=== PATIENT | male | born 1980 | race African-American/Black ===

== ENCOUNTER 2017-02-19 08:19 | Emergency (ER) | payer SELFPAY ==
[2017-02-19] MEDS ORDERED: Proparacaine 0.5% Opth 15 ML BOT ONE (08:30)
[2017-02-19] MEDS ORDERED: Fluorescein Opthalmic Strip ONE (08:30)
== END 2017-02-19 09:15 | disposition home or self-care (01) ==
LOC: ERS 08:19
DX: S05.01XA Injury of conjunctiva and corneal abrasion without foreign body, right eye, initial encounter (principal); W22.8XXA Striking against or struck by other objects, initial encounter
CPT/HCPCS: 99283

== ENCOUNTER 2019-10-14 12:52 | Emergency (ER) | payer SELFPAY | END 2019-10-14 13:45 | disposition home or self-care (01) | LOC: ERS 12:52 | DX: H92.02 Otalgia, left ear (principal) | CPT/HCPCS: 99282 ==

== ENCOUNTER 2020-07-05 16:51 | Emergency (ER) | payer SELFPAY ==
[2020-07-05] MEDS ORDERED: Acetaminophen 500 MG TAB ONE (17:30)
[2020-07-05] MEDS ORDERED: Ketorolac Tromethamine 30 MG/ML VIAL ONE (17:30)
[2020-07-05] MEDS ORDERED: Dexamethasone 10 MG/ML VIAL ONE (17:31)
== END 2020-07-05 18:07 | disposition home or self-care (01) ==
LOC: ERS 16:51
DX: K04.7 Periapical abscess without sinus (principal)
CPT/HCPCS: 96372; 99283; J1100; J1885

== ENCOUNTER 2020-07-07 18:56 | Emergency (ER) | payer SELFPAY ==
[~2020-07-07 18:56] MED LIST: Iopamidol-370 76% 500 ML 1 ML ONE
[2020-07-07] MEDS ORDERED: Ondansetron PF 4 MG/2 ML Vial ONE ×3 (20:10→22:11)
[2020-07-07] MEDS ORDERED: Piperacillin/Tazobactam 4.5 GM VIAL ONE (20:10)
[2020-07-07] MEDS ORDERED: Ketorolac Tromethamine 30 MG/ML VIAL ONE ×2 (20:10→20:13)
[2020-07-07 21:11] LABS: #Eosinphils 0.1 thou/uL (0.0-0.7); #Lymphocytes 2.7 thou/uL (1.20-3.40); #Monocytes 0.9 thou/uL (0.11-0.59); #Neutrophils 4.8 thou/uL (1.40-6.50); %Basophils 0.4 % (0.0-1.0); %Eosinophils 0.7 % (0.0-10.0); %Lymphocytes 31.6 % (21.0-51.0); %Monocytes 10.3 % (0.0-10.0); %Neutrophils 56.9 % (42.0-75.0); Eosinophils 1 % (0-10); Hemoglobin 15.9 g/dL (14.0-18.0); Lymphocytes 38 % (21-51); MDiff Complete? YES; Mean Corpuscular HGB CONC 33.3 g/dL (32.0-36.0); Mean Corpuscular Hemoglobin 32.3 pg (27.0-31.0); Mean Corpuscular Volume 96.8 fL (78.0-98.0); Mean Platelet Volume 11.7 fL (7.4-10.4); Monocytes 10 % (0-10); Neutrophil 51 % (42-75); Platelet Clumps MODERATE; Platelet Morphology Comment PLT clumps seen-ADEQ; RBC Distribution Width 12.2 % (11.5-14.5); Red Blood Cell (RBC) Count 4.92 mill/uL (4.70-6.10); White Blood Cell (WBC) Count 13.1 thou/uL (4.8-10.8)
--- NOTE | 2020-07-07 21:22 | CT ---
CT of theface: 07/07/2020 COMPARISON:None available HISTORY:Fever, tooth ache TECHNIQUE: Serial axial CT imaging at2.5 mm intervals through the face with IV contrast. Coronal and sagittal reformatted imaging obtained. Findings:The partially imaged brain parenchyma appears grossly unremarkable. The imaged paranasal sinuses and mastoid air cells are well aerated. There is a gingival based fluid collection abutting the anterior aspect of the mandible just to the r ight of midline, best seen on axial image 41, measuring 1.5 cm in transverse dimension, 7-8 mm in AP dimension, and 2.1 cm in craniocaudal dimension, most consistent with a gingival based abscess ass ociated with a periapical abscess with cortical disruption involving the lateral right maxillary incisor. Adjacent soft tissue swelling is seen involving the upper lip. Numerous additional dental caries, absent teeth, and periapical abscesses noted. The retroantral fat and the parapharyngeal fat appears clear bilaterally. The parotid glands, the sub mandibular glands, the hyoid bone, the palantine tonsils, the epiglottis and preepiglottic fat, and the imaged vascular structures demonstrate no acute findings. No acute osseous abnormality is evident. Impression:Gingival based fluid collection involving the anterior right para midline maxilla consiste nt with a gingival abscess associated with a periapical abscess of the right maxillary lateral incisor.
[2020-07-07 21:37] LABS: Albumin 3.8 g/dL (3.5-5.0)
[2020-07-07 21:39] LABS: Calcium 8.9 mg/dL (7.8-10.44); Chloride 105 mmol/L (98-107); Potassium 3.7 mmol/L (3.5-5.1); Sodium 137 mmol/L (136-145)
[2020-07-07 21:40] LABS: Globulin 3.3 g/dL (2.4-3.5); Glucose 102 mg/dL (70-105); Protein, Total 7.1 g/dL (6.0-8.3)
[2020-07-07 21:41] LABS: Anion Gap 15 mmol/L (10-20); Carbon Dioxide 21 mmol/L (22-29)
[2020-07-07 21:42] LABS: Alkaline Phosphatase 61 U/L (40-110); Bilirubin, Total 0.4 mg/dL (0.2-1.2)
[2020-07-07 21:43] LABS: Calc. Creatinine Clearance 0 mL/min (70-130)
[2020-07-07 21:44] LABS: BUN (Urea Nitrogen) 12 mg/dL (8.9-20.6)
[2020-07-07 21:46] LABS: ALT (SGPT) 10 U/L (8-55)
[2020-07-07 22:53] LABS: AST (SGOT) 16 U/L (5-34)
== END 2020-07-07 22:18 | disposition home or self-care (01) ==
LOC: ERS 18:56
DX: K04.7 Periapical abscess without sinus (principal); M27.2 Inflammatory conditions of jaws; R11.2 Nausea with vomiting, unspecified
CPT/HCPCS: 36415; 70487; 80053; 85025; 87040; 94760; 96365; 96375; 96376; J1885; J2405; J2543; Q9967

== ENCOUNTER 2020-07-09 19:53 | Emergency (ER) | payer SELFPAY ==
[2020-07-09] MEDS ORDERED: Promethazine HCl 25 MG/ML VIAL ONE (20:15)
[2020-07-09] MEDS ORDERED: Ondansetron PF 4 MG/2 ML Vial ONE (20:15)
[2020-07-09 20:33] LABS: #Basophils 0.1 thou/uL (0.0-0.2); #Eosinphils 0.1 thou/uL (0.0-0.7); #Lymphocytes 3.9 thou/uL (1.20-3.40); #Monocytes 0.8 thou/uL (0.11-0.59); %Basophils 0.8 % (0.0-1.0); %Eosinophils 0.6 % (0.0-10.0); %Lymphocytes 39.7 % (21.0-51.0); %Monocytes 8.1 % (0.0-10.0); %Neutrophils 50.8 % (42.0-75.0); Mean Corpuscular HGB CONC 33.5 g/dL (32.0-36.0); Mean Corpuscular Hemoglobin 31.8 pg (27.0-31.0); Mean Corpuscular Volume 94.9 fL (78.0-98.0); Mean Platelet Volume 8.5 fL (7.4-10.4); Platelet Count 218 thou/uL (130-400); RBC Distribution Width 11.6 % (11.5-14.5); Red Blood Cell (RBC) Count 4.71 mill/uL (4.70-6.10); White Blood Cell (WBC) Count 9.9 thou/uL (4.8-10.8)
[2020-07-09 20:55] LABS: ALT (SGPT) 10 U/L (8-55); AST (SGOT) 17 U/L (5-34); Albumin 4.4 g/dL (3.5-5.0); Alkaline Phosphatase 73 U/L (40-110); Anion Gap 16 mmol/L (10-20); BUN (Urea Nitrogen) 14 mg/dL (8.9-20.6); Bilirubin, Total 0.5 mg/dL (0.2-1.2); Calc. Creatinine Clearance 0 mL/min (70-130); Calcium 9.5 mg/dL (7.8-10.44); Carbon Dioxide 24 mmol/L (22-29); Chloride 102 mmol/L (98-107); Globulin 3.9 g/dL (2.4-3.5); Glucose 111 mg/dL (70-105); Lipase 29 U/L (8-78); Potassium 3.5 mmol/L (3.5-5.1); Protein, Total 8.3 g/dL (6.0-8.3); Sodium 138 mmol/L (136-145)
[2020-07-09] MEDS ORDERED: Metoclopramide 10 MG/10 ML UDCUP ONE (21:10)
[2020-07-09] MEDS ORDERED: Metoclopramide HCl 10 MG/2 ML VIAL ONE (21:10)
[2020-07-09] MEDS ORDERED: diphenhydrAMINE 50 MG/ML VIAL ONE (21:10)
== END 2020-07-09 22:35 | disposition home or self-care (01) ==
LOC: ERS 19:53
DX: R11.2 Nausea with vomiting, unspecified (principal); T42.2X5A Adverse effect of succinimides and oxazolidinediones, initial encounter
CPT/HCPCS: 80053; 83690; 85025; 96365; 96366; 96368; 96375; J1200; J2405; J2550; J2765

== ENCOUNTER 2021-06-01 13:31 | Emergency (ER) | payer SELFPAY ==
[2021-06-01 14:14] LABS: Mean Corpuscular HGB CONC 33.8 g/dL (32.0-36.0); Mean Corpuscular Hemoglobin 32.8 pg (27.0-31.0); Mean Platelet Volume 8.8 fL (7.4-10.4); Platelet Count 145 thou/uL (130-400); RBC Distribution Width 11.7 % (11.5-14.5); Red Blood Cell (RBC) Count 4.87 mill/uL (4.70-6.10); White Blood Cell (WBC) Count 6.9 thou/uL (4.8-10.8)
[2021-06-01 14:28] LABS: ALT (SGPT) 15 U/L (8-55); AST (SGOT) 25 U/L (5-34); Albumin 4.3 g/dL (3.5-5.0); Alkaline Phosphatase 68 U/L (40-110); Anion Gap 14 mmol/L (10-20); BUN (Urea Nitrogen) 14 mg/dL (8.9-20.6); Bilirubin, Total 0.2 mg/dL (0.2-1.2); Calc. Creatinine Clearance 0 mL/min (70-130); Calcium 9.9 mg/dL (7.8-10.44); Carbon Dioxide 27 mmol/L (22-29); Chloride 101 mmol/L (98-107); Globulin 3.8 g/dL (2.4-3.5); Glucose 103 mg/dL (70-105); Lipase 24 U/L (8-78); Potassium 3.7 mmol/L (3.5-5.1); Protein, Total 8.1 g/dL (6.0-8.3); Sodium 138 mmol/L (136-145)
[2021-06-01 14:36] LABS: Band 3 % (5-11); Lymphocytes 34 % (21-51); MDiff Complete? YES; Monocytes 26 % (0-10); Neutrophil 37 % (42-75); Platelet Morphology Comment Appears Adequate; Polychromasia SLIGHT = 2-3 cells (100X) (0-2/hpf)
== END 2021-06-01 15:38 | disposition left against medical advice (07) ==
LOC: ERS 13:31
DX: Z53.21 Procedure and treatment not carried out due to patient leaving prior to being seen by health care provider (principal)
CPT/HCPCS: 36415; 80053; 83690; 83735; 85025; 94760

== ENCOUNTER 2023-01-02 13:44 | Emergency (ER) | payer SELFPAY ==
[2023-01-02] MEDS ORDERED: Boostrix 0.5 ML (Tdap) VIAL (>/=7 yrs of age) ONE (13:54)
[2023-01-02] MEDS ORDERED: Lidocaine 1% MPF 2 ML VIAL ONE ×2 (13:54→14:00)
[2023-01-02] MEDS ORDERED: Bacitracin 1 PK ONE (14:30)
== END 2023-01-02 15:11 | disposition home or self-care (01) ==
LOC: ERS 13:44
DX: S60.351A Superficial foreign body of right thumb, initial encounter (principal); W45.8XXA Other foreign body or object entering through skin, initial encounter; Z23 Encounter for immunization
CPT/HCPCS: 28190; 90471; 90715

== ENCOUNTER 2023-03-29 21:00 | Emergency (ER) | payer SELFPAY ==
[2023-03-29] MEDS ORDERED: Ketorolac Tromethamine 30 MG/ML VIAL ONE (21:24)
[2023-03-29] MEDS ORDERED: HYDROcodone/Acetaminophen 10/325 mg Tablet ONE (21:24)
[2023-03-29] MEDS ORDERED: Lidocaine 1% PF 5 ML VIAL ONE (21:31)
[2023-03-29] MEDS ORDERED: CEFAZOLIN 1 GM VIAL ONE (22:00)
[2023-03-29] MEDS ORDERED: Sterile Water 10 ML ONE (22:01)
[2023-03-29] MEDS ORDERED: Bacitracin 1 PK ONE (22:19)
== END 2023-03-29 22:47 | disposition home or self-care (01) ==
LOC: ERS 21:00
DX: S62.633B Displaced fracture of distal phalanx of left middle finger, initial encounter for open fracture (principal); W23.1XXA Caught, crushed, jammed, or pinched between stationary objects, initial encounter
CPT/HCPCS: 12001; 96372; J0690; J1885

== ENCOUNTER 2023-04-05 23:16 | Emergency (ER) | payer SELFPAY ==
[2023-04-06] MEDS ORDERED: Acetaminophen 500 MG TAB ONE (00:10)
[2023-04-06] MEDS ORDERED: Ibuprofen 200 MG TAB ONE (00:10)
[2023-04-06] MEDS ORDERED: Bacitracin 1 PK ONE (00:20)
== END 2023-04-06 00:29 | disposition home or self-care (01) ==
LOC: ERS 23:16
DX: S62.633D Displaced fracture of distal phalanx of left middle finger, subsequent encounter for fracture with routine healing (principal); W23.0XXD Caught, crushed, jammed, or pinched between moving objects, subsequent encounter

== ENCOUNTER 2025-05-21 02:06 | Emergency (ER) | payer BC, OTHER, SELFPAY ==
[2025-05-21 03:08] LABS: #Basophils Less than 0.03 10x3/uL (0.0-0.2); #Eosinophils Less than 0.03 10x3/uL (0.0-0.7); #Monocytes 0.77 10x3/uL (0.11-0.59); #Neutrophils 5.29 10x3/uL (1.40-6.50); %Basophils 0.1 % (0.0-1.0); %Eosinophils 0.0 % (0.0-10.0); %Lymphocytes 21.2 % (21.0-51.0); %Monocytes 10.0 % (0.0-10.0); %Neutrophils 68.4 % (42.0-75.0); Hematocrit 46.9 % (42.0-52.0); Hemoglobin 16.0 g/dL (14.0-18.0); Mean Corpuscular Hemoglobin 30.5 pg (27.0-31.0); Mean Corpuscular Volume 89.5 fL (78.0-98.0); Platelet Count 199 10x3/uL (130-400); Red Blood Cell (RBC) Count 5.24 mill/uL (4.70-6.10); White Blood Cell (WBC) Count 7.73 10x3/uL (4.8-10.8)
[2025-05-21] MEDS ORDERED: Ondansetron PF 4 MG/2 ML Vial ONE (03:48)
[2025-05-21] MEDS ORDERED: Ketorolac Tromethamine 30 MG (1 mL) VIAL ONE (03:48)
== END 2025-05-21 05:09 | disposition home or self-care (01) ==
LOC: ERS 02:06
DX: J10.1 Influenza due to other identified influenza virus with other respiratory manifestations (principal)
CPT/HCPCS: 85025; 87428; 96374; 96375; J1885; J2405